=== PATIENT | female | born 1955 | race Caucasian/White ===

== ENCOUNTER 2024-01-13 09:44 | Outpatient (AMB) | payer OTHER, MEDICARE, SELFPAY ==
--- NOTE | 2024-01-13 09:55 | HO.SPINEOV ---
Intake Visit Reasons: spinal stenosis of the lumbar Intake Note: Ms. Bruno is here today c/o severe painful Leg spasms throughout the night. 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 HPI: This 68-year-old female had a L4-S1 fusion done in [facility] approximately 10 years ago. She responded well to the surgery. In the last here she developed severe lower back pain when she stands for prolonged period of time. She describes it as a burning sensation that can go all the way up to her scapula. Moreover, she developed severe spasms the predominantly occur at night anywhere from 3-8 times. Cramps are in the back of her leg and to the outside of her lower leg. There is a happen during the day with less intensity. She denies weakness. She saw Dr. Collins that recommended referral to me for adjacent degenerative disc disease with spinal stenosis. He thought she was not a good candidate for injections. She did try physical therapy without success. s PMH: Tonsillectomy 2 C-sections, cataract surgery L4-S1 fusion, cholecystectomy Medications: MiraLax and amlodipine Allergies: Codeine Social history: . Works for [employer] Physical Exam: Pleasant female. She is able to ambulate normally. She is currently asymptomatic with the exception of lower back pain. There are no neurological deficits for upper or lower extremities. No pathological reflexes. Radiological Studies: MRI done at [facility] on 07/11/2023 shows status post L4-S1 fusion and adjacent development of moderate L3-4 spinal stenosis. Flexion-extension x-rays show minimal retrolisthesis L3-4 but fish mouthing of the disc space. Impression/Plan: This patient has an unusual presentation of adjacent degenerative disc disease. The back pain is related to walking and standing but the cramps can come at any time. However I do think she has symptomatic from the L3-4 level and therefore I offered her an oblique lumbar interbody fusion L3-4 and revision posterior instrumentation L4-S1. I discussed the procedure. She will be in the hospital 1 night. We also discussed the expected postoperative course. Thank you for allowing me to participate in your patients care. 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
== END 2024-01-13 11:55 | disposition home or self-care (01) ==
PROVIDERS: PCP Family Medicine; Referring Provider Physical Medicine & Rehabilitation; Visit Provider Neurological Surgery
DX: M48.061 Spinal stenosis, lumbar region without neurogenic claudication (principal); M51.36 Other intervertebral disc degeneration, lumbar region
CPT/HCPCS: 99204

== ENCOUNTER 2024-01-13 09:44 | Outpatient (REF) | payer OTHER, MEDICARE, SELFPAY ==
--- NOTE | ~2024-01-13 | XR_ITS ---
EXAMINATION: XR LUMBOSACRAL SPINE WITH OBLIQUES CLINICAL INFORMATION: Spinal stenosis lumbar region without neurogenic claudication. COMPARISON: None available. TECHNIQUE: 4 views of the lumbar spine inclusive of flexion and extension views. FINDINGS: Surgical clips right upper quadrant. Levoscoliosis of the lumbar spine. Moderate lumbar spondylosis at L1-L2, L2-L3 and L3-L4. Posterior fixation with bilateral longitudinal rods and pedicular screws spanning L4-L5-S1 levels. Interdisc devices at L4-L5, and at L5-S1. The bones are diffusely demineralized. Hardware appears intact. XR/XR lumbar spine 4V min IMPRESSION: 1. Posterior fixation hardware spanning L4-L5-S1 levels. Hardware appears intact. 2. Moderate lumbar spondylosis at L1-L2, L2-L3 and L3-L4.
== END 2024-01-13 09:45 | disposition home or self-care (01) ==
LOC: HO.HOSX 09:44
PROVIDERS: PCP Family Medicine; Visit Provider Neurological Surgery
DX: M47.816 Spondylosis without myelopathy or radiculopathy, lumbar region (principal); Z98.1 Arthrodesis status
CPT/HCPCS: 72110

== ENCOUNTER 2024-04-25 | Outpatient (REF) | payer MEDICARE, SELFPAY ==
[2024-04-10 10:06] VITALS: BP 136/63; PULSE 64; RESP 20; O2SAT 98; BMI 22.3
--- NOTE | 2024-04-10 10:28 | HO.ANESPROP2 ---
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 fusion procedure (Acute) Past Medical History Medical History Arthritis HTN (hypertension) Back pain Lumbar spinal stenosis Family History Family history of problems with anesthesia: No Surgical History Surgical History Hx of endoscopic retrograde cholangiopancreatography History of esophagogastroduodenoscopy (EGD) H/O colonoscopy Hx of hysterectomy Hx of foot surgery Hx of cholecystectomy Hx of bilateral cataract extraction Hx of section Hx of tonsillectomy History of lumbar fusion History of Problems with Anesthesia: No (Vomit x 1) Social History Social History Housing Other:: mobile home Are you a primary care rep to a significant other at home: No Do you presently have visiting nurse or other home services: No Patient Tobacco Use Status: Never used Tobacco Use of substances other than those prescribed or required for medical reasons: No Have you been hit, kicked, punched, or otherwise hurt by someone within the past year? 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 Verified 04/24/24 09:19 mping codeine Allergy Intermediate Hives/rash Verified 04/24/24 09:19 Home Medications ?Medication ?Instructions ?Recorded ?Confirmed ?Last Taken ?Type amlodipine 5 mg-benazepril 10 mg 1 cap PO QAM 04/09/24 04/24/24 Unknown History capsule polyethylene glycol 3350 17 17 g PO QAM 04/10/24 04/24/24 Unknown History gram/dose oral powder (Miralax) Exam Height,Weight and Vital Signs: Height 5 ft 1 in Weight 53.5 kg Last Vital Signs Pulse 64 04/10/24 10:06 Resp 20 04/10/24 10:06 BP 136/63 04/10/24 10:06 Pulse Ox 98 04/10/24 10:06 O2 Del Method Room Air 04/10/24 10:06 Pertinent Lab Results Pertinent Lab Results: CBC and BMP 03/2024 from outside facility WNL Narrative Narrative: EKG 03/2024 NSR @ 61 Airway Mallampati Class: II TM Dist: >3cm Neck ROM: Limited (OA/R shoulder pain) Loose/Missing/Broken Teeth: No Heart: RRR Lungs: CTAB Assessment and Plan Assessment Anesthesia Assessment: Anesthesia Plan Discussed and PAT Visit Final Anesthetic Review Family History of Problems with Anesthesia: No History of Problems with Anesthesia: No (Vomit x 1) Documented by User: Martha Shafer MD 04/24/24 10:16 PMFSH Past Medical History Medical History Arthritis HTN (hypertension) Back pain Lumbar spinal stenosis Surgical History Surgical History Hx of endoscopic retrograde cholangiopancreatography History of esophagogastroduodenoscopy (EGD) H/O colonoscopy Hx of hysterectomy Hx of foot surgery Hx of cholecystectomy Hx of bilateral cataract extraction Hx of section Hx of tonsillectomy History of lumbar fusion Social History Social History Housing Other:: mobile home Are you a primary care rep to a significant other at home: No Do you presently have visiting nurse or other home services: No Patient Tobacco Use Status: Never used Tobacco Use of substances other than those prescribed or required for medical reasons: No Have you been hit, kicked, punched, or otherwise hurt by someone within the past year? 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 Verified 04/24/24 09:19 mping codeine Allergy Intermediate Hives/rash Verified 04/24/24 09:19 Home Medications ?Medication ?Instructions ?Recorded ?Confirmed ?Last Taken ?Type amlodipine 5 mg-benazepril 10 mg 1 cap PO QAM 04/09/24 04/24/24 Unknown History capsule polyethylene glycol 3350 17 17 g PO QAM 04/10/24 04/24/24 Unknown History gram/dose oral powder (Miralax) Assessment and Plan Final Anesthetic Review NPO: Yes ASA Class: II Final Preanesthetic Review: No Changes in Pt Med Stat, Meds/Allgs Chart Reviewed, Consent Obtained/Reviewed and Anes Risks/Benef Reviewed Patient Risk: Low Procedure Risk: Intermediate Anesthetic Plan Anesthetic Plan: GA Disposition: Standard PACU
[2024-04-24 09:25] VITALS: BP 149/73; PULSE 73; RESP 16; TEMP 37.1; O2SAT 99
--- OUTSIDE RECORDS SUMMARY | 2024-04-24 09:35 | XMS_ITS ---
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 speech fluent with no aphasic errors noted, CN's: fundoscopic completed and crisp optic disk margins seen bilaterally, PERRLA, EOMI, VFF, VA in R eye- in L eye-grossly intact for todays exam without glasses , face symmetrical, tongue midline, palate rises equally, hearing grossly intact B/L, V1-V3 intact to light touch B/L Motor: 5-/5 strength symmetrical in UE and LE bilaterally, tone normal, no cogwheeling or rigidity, no tremors noted Reflexes: 2+ UE and LE symmetrical, toes downgoing bilaterally, no clonus, hoffmans negative Sensation: grossly intact to UE and LE B/L to light touch, cold, and vibration sense bUT DECREASE vibration and cold sense to B/L feet Coordination: finger to nose and heel to nevarez intact B/L without any dysmetria noted Gait: normal steppage, jorge and armswing, toe walking normal, heel walking impaired, tandem impaired, slight wobble with romberg eyes closed. SKIN: normal, no rashes, n o suspicious lesions, warm and dry EXTREMITIES: no clubbing, cyanosi s, or edema PSYCH: Mental status: Pt se en and examined on their own in the outpatient clinic. Dressed appropriately for the weather and situation, grooming intact. Affect was open and receptive, warm, mood described as for sure, depressed . Speech was fluent, without neologisms or flight of ideas noted. Thought process was logical and goal oriented, though content notable for concern about her symptoms , but devoid of thoughts of wanting to harm themselves or others, no delusions, hallucinations or pilo noted. Judgement and insight were intact and appropriate for participation in informed consent and treatment on an outpatient basis. ORAL CAVITY: normal, good dentiti on, mucosa moist, palate normal, tongue in midline
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
--- OUTSIDE RECORDS SUMMARY | 2024-04-24 09:35 | XMS_ITS ---
Author Organization [facility], [facility] Address [address] [address] Care Team Providers Care Rug Receiving Clerk Name Role Phone Dav Messina Primary Care Provider MARINA Andrews Unavailable [phone] REASON FOR VISIT Cb for appt?? Encounters Encounter Location Date Provider Diagnosis [facility], [address] [address] 12/02/2023 MARINA CHAVEZ Plan Of Treatment No Information Progress Notes * Noemi FRANCOB:1955 (68 yo F)Acc No.[id number]:12/02/2023 Patient:?Mima RFANCO :1955???Age:68 Y???Sex:Female Address:[address] [place] [address], [address] * true * Date:? Generated for Printi renate/Aaron/eTransmitting on:?04/24/2024 09:34 AM EDT
--- OUTSIDE RECORDS SUMMARY | 2024-04-24 09:35 | XMS_ITS ---
Author Organization [facility], [facility] Address [address] [address] Care Team Providers Care Brick Baker Name Role Phone Dav Messina Primary Care Provider MARINA Andrews Unavailable [phone] REASON FOR VISIT Cx per pt request, Surgery Encounters Encounter Location Date Provider Diagnosis [facility] [employer] [address] [address] 04/13/2024 MARINA CHAVEZ Plan Of Treatment No Information Progress Notes * Noemi FRANCOB:1955 (68 yo F)Acc No.[id number]:04/13/2024 Progress Notes Patient:?Mima FRANCO Provider:?MARINA CHAVEZ D.O :1955???Age:68 Y???Sex:Female D ate:04/13/2024 Address:[address] [place], [place] [id number] Pcp:Dav Messina Subjective: * Chief Complaints: * ???1. Cx per pt request, Stormy haim. * Medical History:? Objective: * Vitals:? Assessment: Plan: * Treatment: * * Electronic signature of MANUEL CHAVEZ DO on 04/24/2024 at 09:34 AM EDT Sign off status: Pending * Provider:?MARINA CHAVEZ D.O Date:?0 04/13/2024 Generated for Judyi ng/Fakishoreg/eTransmitting on:?04/24/2024 09:34 AM EDT
--- NOTE | 2024-04-24 10:13 | MHC.SHP ---
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 Verified 04/24/24 09:19 mping codeine Allergy Intermediate Hives/rash Verified 04/24/24 09:19 Review of Systems Sugical H&P ROS: Negative: Constitution, Cardiovascular, Respiratory, Neurological, Psychiatric, Hem-Onc, Allergic/Immunologic, Gastrointestinal, Genitourinary, Musculoskeletal, Integumentary, Endocrine and Eyes/Ears/Nose/Throat Exam Surgical H&P Exam: Normal: HEENT, Normal: Heart, Normal: Lungs, Normal: Extremities, Normal: Abdomen, Normal: Skin and Normal: Neurological (Awake, alert) Plan Diagnosis/Plan: Unchanged I have reviewed the history and physical and performed a pertinent physical examination on my patient. No changes have occurred unless specified. oblique lumbar interbody fusion L3-4 and revision posterior instrumentation L4-S1 Time Spent With Patient Time: Total time managing care of this patient today ____ minutes.
--- OUTSIDE RECORDS SUMMARY | 2024-08-03 11:00 | XMS_ITS ---
Author Organization [facility] [employer], [facility] Address [address] [place] [id number] Care Team Providers Care Professor Of Food Biochemistry Name Role Phone Dav Messina Primary Care Provider MARINA Andrews Unavailable [phone] REASON FOR VISIT Cx per pt request, Surgery Encounters Encounter Location Date Provider Diagnosis [facility] [address] [address] 04/13/2024 MARINA CHAVEZ Plan Of Treatment No Information Progress Notes * Noemi FRANCOB:1955 (68 yo F)Acc No.[id number]:04/13/2024 Progress Notes Patient:?Mima FRANCO Provider:?MARINA CHAVEZ D.O :1955???Age:68 Y???Sex:Female D ate:04/13/2024 Address:[address] [place], [place] [id number] Pcp:Dav Messina Subjective: * Chief Complaints: * ???1. Cx per pt request, Stormy haim. * Medical History:? Objective: * Vitals:? Assessment: Plan: * Treatment: * * Electronic signature of MNAUEL CHAVEZ DO on 08/03/2024 at 10:59 AM EST Sign off status: Pending * Provider:?MARINA CHAVEZ D.O Date:?0 04/13/2024 Generated for Judyi ng/Aaron/eTransmitting on:?08/03/2024 10:59 AM EST
--- OUTSIDE RECORDS SUMMARY | 2024-08-03 11:00 | XMS_ITS ---
Author Organization [facility] Address [address] [address] Care Team Providers Care Online Facilitator Name Role Phone Dav Messina Primary Care Provider MARINA Andrews Unavailable [phone] Allergies Allergen (clinical drug ingredient) Drug/Non Drug Allergy documented on EMR Reaction Allergy Type Onset Date Status citalopram Citalopram Unknown Drug Allergy Activ e codeine Codeine Unknown Drug Allergy Active Results Component Value Reference Range Notes PROTEIN, TOTAL AND PROTEIN E LECTROPHORESIS Reviewed date:02/13/2024 02:17:10 PM Interpretation: Performing Lab:NL2, [facility] [facility] [address] Michael Latham Notes/Report: 0; 0; 0; [...] Reviewed date:02/13/2024 02:17:55 PM Interpretation: Performing Lab:NL2, [facility] [facility] [address] Michael Latham Notes/Report: 0; 0; 0; [...] PLT) Reviewed date:02/13/2024 02:17:18 PM Interpretation: Performing Lab:Tobi, [employer] [facility] [address] Michael Latham Notes/Report: 0; 0; 0; [...] A1c Reviewed date:02/13/2024 02:17:51 PM Interpretation: Performing Lab:PARTH, [employer] [facility] [place] [address] Sweta Niroz Notes/Report: 0; 0; 0; 0; 0; 0; [...] change in test platforms from the Dunlap Editor Book to the Yanely lulu c503 may have shifted HbA1c results compared to historical results. Based on laboratory validation testing conducted at [facility], the Yanely platform relative to the Dunlap [...] Reviewed date:02/13/2024 02:17:24 PM Interpretation: Performing Lab:FEDERICO2, [employer] [facility] Sweta Tami Notes/Report: 0; 0; 0; 0; 0; 0; 0; 0; 0 VITAMIN B12 494 650-6627 pg/mL FOLATE, SERUM 9.2 Reference Range Low: <3.4 Borderline: 3.4-5.4 Normal: >5.4 TSH W/REFLEX TO FT4 Reviewed date:02/13/2024 02:17:30 PM Interpretation: Performing Lab:NL2, [employer] [facility] [place] [id number] Sweta Tami Notes/Report: 0; 0; 0; 0; 0; 0; 0; 0; 0 TSH W/REFLEX TO FT4 0.72 0.40-4.50 mIU/L VITAMIN D,25-OH,TOTAL,IA Reviewed date:02/13/2024 02:18:02 PM Interpretation: Performing Lab:FEDERICO2, [employer] [facility] [address] [place], [place] [address] Michael Latham Notes/Report: 0; 0; 0; 0; [...] D, (D2,D3), LC/MS/MS is recommended: order code 63193 (patients >2yrs). See Note 1 Note 1 For additional information, please refer to http://education.Dialogic/faq/LWI162 (This link is being provided for informational/ educational purposes only.) METHYLMALONIC ACID Reviewed date:02/13/2024 02:17:39 PM Interpretation: Performing Lab:DAREN [facility] Aretha/[address] [id number] Jordan Guzman, [id number] Jose Wilburn M.D.,PhD Notes/Report: 0; 0; 0; [...] neural tube defects and intrauterine growth restriction. [employer] utilized Multi-Modal Decomposition (MMD) analysis to establish first and second trimester- specific MMA reference intervals in , as given below: MMA, First trimester (<13 wks gestation): 58-167 nmol/L MMA, Second trimester (13-23 wks gestation): 63-241 nmol/L This test was developed and its analytical performance characteristics have been determined by [employer]. It has not been cleared or approved by the FDA. This assay has been validated pursuant to the CLIA regulations and is used for clinical purposes. VITAMIN B6 Reviewed date:02/13/2024 02:17:46 PM Interpretation: Performing Lab:Cristin MERCEDES/[facility] [id number] Jordan Guzman, [id number] Jose Wilburn M.D.,PhD Notes/Report: 0; 0; 0; 0; 0; 0; 0; 0; 0 VITAMIN B6, PLASMA 9.6 2.1-21.7 ng/mL Vitamin supplementation within 24 hours prior to blood draw may affect the accuracy of the results. This test was developed and its analytical performance characteristics have been determined by [employer] [place], [place]. It has not been cleared or approved by the U.S. Food and Drug Administration. This assay has been validated pursuant to the CLIA regulations and is used for clinical purposes. 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 non smoker, rare ETOH, no illicits. 2 dogs. Raised mandaen, not currently going to gnosticist. Problems Problem Type SNOMED Code ICD Code Onset Dates Problem Status W/U Status Risk Notes Problem Depression (827519222) Depression (F32.9) Active confirmed Problem Hypertension (60651895) HTN (hypertension) (I10) Active confirmed Problem Neuropathic pain (763009375) Neuropathic pain (M79.2) Active confirmed Problem Cramp in limb (329088602) Leg cramping (R25.2) Active confirmed Problem Anxiety (07241006) Anxiety (F41.9) Active confirmed Problem Migraine (62305887) Migraine (G43.909) Active confirmed Problem 766453577 Chronic migraine without aura without status migrainosus, not intractable (G43.709) Active confirmed Problem 20213928 Polyneuropathy (G62.9) Active confirmed Problem 507372 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 Vital Signs Blood pressure systolic 144 mm Hg 02/07/20 24 Blood pressure diastolic 76 mm Hg 024 Heart Rate 69 /min 02/07/2024 Height 62 in 02/07/2024 Weight 118 lbs 02/07/2024 BMI 21.58 kg/m2 02/07/2024 Encounters Encounter Location Date Provider Diagnosis [address] [address] 02/07/2024 MARINA CHAVEZ Chronic migraine without aura without status migrainosus, not intractable G43.709 ; Polyneuropathy G62.9 ; Traumatic brain injury, with loss of consciousness of 30 minutes or less, initial encounter S06.9X1A ; Moderate major depression F32.1 and Lumbar radiculopathy M54.16 Assessments Encounter Date Diagnosis (ICD Code) Assessment Notes Treatment Notes Treatment Clinical Notes Section Notes 02/07/2024 Chronic migraine without aura without [...] switch to duloxetine if sertraline not helpful. Mima is a 68 yo woman with a hx of likely numerous head injuries, most recently in 10/2023, as well as decades of intermittent migraine headache, polyneuropathy in her LE's, and depression in the setting of personal trauma. 02/07/2024 Polyneuropathy (ICD-10 - G62.9) Will get labs to further the workup from [facility] last year Mima is a 68 yo woman with a hx of likely numerous head injuries, most recently in 10/2023, as well as decades of intermittent migraine headache, polyneuropathy in her LE's, and depression in the setting of personal trauma. 02/07/2024 Traumatic brain injury, with loss of consciousness of 30 minutes or less, initial encounter (ICD-10 - S06.9X1A) Hx of concussions in the past, and most recently concussion wiht LOC- stil likely healing, and will advise supportive care including improving sleep hygiene, computer eye rest, and stress management at home. Mima is a 68 yo woman with a hx of likely numerous head injuries, most recently in 10/2023, as well as decades of intermittent migraine headache, polyneuropathy in her LE's, and depression in the setting of personal trauma. 02/07/2024 Moderate major depression (ICD-10 - F32.1) Agree with sertraline and likely will need higher doses to see full effect- will begin with workup and then discuss this medication in more detail. Mima is a 68 yo woman with a hx of likely numerous head injuries, most recently in 10/2023, as well as decades of intermittent migraine headache, polyneuropathy in her LE's, and depression in the setting of personal trauma. 02/07/2024 Lumbar radiculopathy (ICD-10 - M54.16) pending further surgery from Kamron Muller in the the fall 2023 Mima is a 68 yo woman with a hx of likely numerous head injuries, most recently in 10/2023, as well as decades of intermittent migraine headache, polyneuropathy in her LE's, and depression in the setting of personal trauma. 02/07/2024 Other Neuro I spent a total of 60 minutes on the present encounter, which includes preparing for the encounter, obtaining history, performing examination, reviewing diagnostic data, ordering medications/test ing/procedures and other care coordination, referring to and communicating with other health rn complex care, documenting clinical information in the record, [...] sentence. If any questions, please contact the COMMERCIAL LINES UNDERWRITER office at [phone]. Mima is a 68 yo woman with a hx of likely numerous head injuries, most recently in 10/2023, as well as decades of intermittent migraine headache, polyneuropathy in her LE's, and depression in the setting of personal trauma. Plan Of Treatment Treatment Notes Assessment Notes [...] Notes * Melanie FRANCOaDOB:1955 (68 yo F)Acc No.[id number]:02/07/2024 Progress Notes Patient:?Mima FRANCO Provider:?MARINA CHAVEZ D.O :1955???Age:68 Y???Sex:Female D ate:02/07/2024 Address:[address] [place], [place] [id number] Pcp:Dav Messina Subjective: * Chief Complaints: * [...] pain are severe and she is working [facility] neurosurg on this. Saw Dr. Muller for neurosurg and is pending back surgery in April 2024. Herrera s leg spasms at [facility] that disrupt her sleep nightly.? 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 a son and a daughter is and she cares for their kids (grandkids are 10 and 12). 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 non smoker, rare ETOH, no illicits. 2 dogs. Raised mandaen, not currently going to gnosticist. 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 If any questions, please contact the COMMERCIAL LINES UNDERWRITER office at [phone]. ?? * Procedure Codes:? * Follow Up:?blood today, fu n ext avail F2F * * Sign off status: Completed true * Provider:?MARINA CHAVEZ D.O Date:?0 02/07/2024 Generated for Sofia dewitt/Aaron/Brianitting on:?08/03/2024 10:59 AM EST History and Physical Notes * HPI (History of Present Illness) Category Sub-Category Detail Notes Category Not es Interim History * Prior Medication trials i nclude- as above Examination Category Sub-Category Detail Notes Category Not es General Examination GENERAL APPEARANCE: in no ac marcel distress, well developed, well nourished HEAD: normocephalic, atrau matic EARS: normal NOSE: nares patent, no les ions THROAT: normal, no erythema, no exudate, tonsils normal, uvula midline NECK/THYROID: normal, neck supple, full range of motion HEART: LUNGS: NEUROLOGIC: Cognition: alert, oriented to person, place, time and situation, 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
--- OUTSIDE RECORDS SUMMARY | 2024-08-03 11:00 | XMS_ITS | Patient Health Record ---
Author Organization [facility] Address [address] [address] Care Team Providers Care Sales Management Intern Name Role Phone Dav eMssina Primary Care Provider MARINA Andrews Unavailable [phone] Allergies Allergen (clinical drug ingredient) Drug/Non Drug Allergy documented on EMR Reaction Allergy Type Onset Date Status citalopram Citalopram Unknown Drug Allergy Activ e codeine Codeine Unknown Drug Allergy Active Results Component Value Reference Range Notes PROTEIN, TOTAL AND PROTEIN E LECTROPHORESIS Reviewed date:02/13/2024 02:17:10 PM Interpretation: Performing Lab:NL2, [facility] [employer] [facility] Michael Latham Notes/Report: 0; 0; 0; [...] Reviewed date:02/13/2024 02:17:55 PM Interpretation: Performing Lab:NL2, [employer] [facility] Michael Latham Notes/Report: 0; 0; 0; [...] Reviewed date:02/13/2024 02:17:18 PM Interpretation: Performing Lab:PARTH, [employer] [facility] Michael Latham Notes/Report: 0; 0; 0; [...] Reviewed date:02/13/2024 02:17:51 PM Interpretation: Performing Lab:PARTH [employer] [facility] Michael Latham Notes/Report: 0; 0; 0; [...] change in test platforms from the Dunlap Entry Level Lab Technician to the Yanely lulu c503 may have shifted HbA1c results compared to historical results. Based on laboratory validation testing conducted at [facility], the Yanely platform relative to the Dunlap [...] Reviewed date:02/13/2024 02:17:24 PM Interpretation: Performing Lab:FEDERICO2, [employer] [facility] Marky Sweta Latham Notes/Report: 0; 0; 0; 0; 0; 0; 0; 0; 0 VITAMIN B12 363 142-0218 pg/mL FOLATE, SERUM 9.2 Reference Range Low: <3.4 Borderline: 3.4-5.4 Normal: >5.4 TSH W/REFLEX TO FT4 Reviewed date:02/13/2024 02:17:30 PM Interpretation: Performing Lab:NL2, [facility] [employer] [facility] Michael Latham Notes/Report: 0; 0; 0; 0; 0; 0; 0; 0; 0 TSH W/REFLEX TO FT4 0.72 0.40-4.50 mIU/L VITAMIN D,25-OH,TOTAL,IA Reviewed date:02/13/2024 02:18:02 PM Interpretation: Performing Lab:FEDERICO2, [facility] [address]mem[address] Michael Latham Notes/Report: 0; 0; 0; [...] D, (D2,D3), LC/MS/MS is recommended: order code [id number] (patients >2yrs). See Note 1 Note 1 For additional information, please refer to http://education.Lateral SV/faq/QXT855 (This link is being provided for informational/ educational purposes only.) METHYLMALONIC ACID Reviewed date:02/13/2024 02:17:39 PM Interpretation: Performing Lab:DAREN [facility]/[id number] Jordan Guzman, [id number] Jose Wilburn M.D.,PhD Notes/Report: 0; 0; 0; [...] neural tube defects and intrauterine growth restriction. [employer] utilized Multi-Modal Decomposition (MMD) analysis to establish first and second trimester- specific MMA reference intervals in , as given below: MMA, First trimester (<13 wks gestation): 58-167 nmol/L MMA, Second trimester (13-23 wks gestation): 63-241 nmol/L This test was developed and its analytical performance characteristics have been determined by [employer]. It has not been cleared or approved by the FDA. This assay has been validated pursuant to the CLIA regulations and is used for clinical purposes. VITAMIN B6 Reviewed date:02/13/2024 02:17:46 PM Interpretation: Performing Lab:DAREN [facility] Aretha/[facility] [id number] Jordan Guzman, [id number] Jose Wilburn M.D.,PhD Notes/Report: 0; 0; 0; 0; 0; 0; 0; 0; 0 VITAMIN B6, PLASMA 9.6 2.1-21.7 ng/mL Vitamin supplementation within 24 hours prior to blood draw may affect the accuracy of the results. This test was developed and its analytical performance characteristics have been determined by [employer] [place], [place]. It has not been cleared or approved by the U.S. Food and Drug Administration. This assay has been validated pursuant to the CLIA regulations and is used for clinical purposes. 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 non smoker, rare ETOH, no illicits. 2 dogs. Raised faith, not currently going to pentecostal. Problems Problem Type SNOMED Code ICD Code Onset Dates Problem Status W/U Status Risk Notes Problem Anxiety (91503497) Anxiety (F41.9) Active confirmed Problem Migraine (94087257) Migraine (G43.909) Active confirmed Problem Depression (880006622) Depression (F32.9) Active confirmed Problem 63083276 Polyneuropathy (G62.9) Active confirmed Problem Neuropathic pain (493060453) Neuropathic pain (M79.2) Active confirmed Problem 208198240 Chronic migraine without aura without status migrainosus, not intractable (G43.709) Active confirmed Problem Hypertension (79354719) HTN (hypertension) (I10) Active confirmed Problem Cramp in limb (239048939) Leg cramping (R25.2) Active confirmed Problem 606947 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 Vital Signs Heart Rate 69 /min 02/07/2024 Blood pressure diastolic 76 mm Hg 02/07/2024 Height 62 in 02/07/2024 Blood pressure systolic 144 mm Hg 02/07/2024 Weight 118 lbs 02/07/2024 BMI 21.58 kg/m2 02/07/2024 Encounters Encounter Location Date Provider Diagnosis [address] [address] 02/07/2024 MARINA CHAVEZ Chronic migraine without aura without status migrainosus, not intractable G43.709 ; Polyneuropathy G62.9 ; Traumatic brain injury, with loss of consciousness of 30 minutes or less, initial encounter S06.9X1A ; Moderate major depression F32.1 and Lumbar radiculopathy M54.[address] [address] 11/28/[address] [address] 12/02/[address] [address] 12/02/2023 MARINA CHAVEZ Assessments Encounter Date Diagnosis (ICD Code) Assessment Notes Treatment Notes Treatment Clinical Notes Section Notes 02/07/2024 Polyneuropathy (ICD-10 - G62.9) Will get labs to further the workup from [facility] last year Mima is a 68 yo woman with a hx of likely numerous head injuries, most recently in 10/2023, as well as decades of intermittent migraine headache, polyneuropathy in her LE's, and depression in the setting of personal trauma. 02/07/2024 Chronic migraine without aura without status [...] referring to and communicating with other health progressive care manager, documenting clinical information in the record, counseling, providing instructions and answering the patient's questions. The patient understands and agrees with the plan of care outlined. This note was generated with voice recognition software. Please excuse any errors which may have been overlooked during review. Sometimes these errors may affect the content or meaning of a given sentence. If any questions, please contact the TECHNICAL TRANSLATOR office at [phone]. Mima is a 68 yo woman with a hx of likely numerous head injuries, most recently in 10/2023, as well as decades of intermittent migraine headache, polyneuropathy in her LE's, and depression in the setting of personal trauma. Plan Of Treatment No Information Insurance Providers Payer Name Payer Address Payer Phone Subscriber Number Group Number Insured Name Patient Relationship to Insured Coverage Start Date Coverage End Date [facility] [address] [place] [address] [phone] [id number] Mima Bruno Self - patient is the insured MEDICARE [address] [place] [id number] PART A ONLY Mima Bruno Self - patient is the insured Medical (General) History Medical History History ICD Code Syncope and collapse R55 Depression F32.9 HTN (hypertension) I10 Neuropathic pain M79.2 Leg cramping R25.2 Anxiety F41.9 Migraine G43.909 Surgical History Surgery Date(Month/Year) Back surgery x2 Gallbladder Right foot sugery Hysterectomy x2 Tonsillectomy
--- OUTSIDE RECORDS SUMMARY | 2024-08-03 11:00 | XMS_ITS ---
Author Organization [facility] Address [address] [address] Care Team Providers Care Senior Analyst Developer Name Role Phone Dav Messina Primary Care Provider MARINA Andrews Unavailable [phone] REASON FOR VISIT Cb for appt?? Encounters Encounter Location Date Provider Diagnosis [facility], [address] [address] 12/02/2023 MARINA CHAVEZ Plan Of Treatment No Information Progress Notes * Noemi FRANCOB:1955 (68 yo F)Acc No.[id number]:12/02/2023 Patient:?Mima FRANCO :1955???Age:68 Y???Sex:Female Address:[address] [place] [address], [address] * true * Date:? Generated for Judyi renate/Aaron/eTransmitting on:?08/03/2024 11:00 AM EST
== END 2024-04-25 00:01 ==
LOC: HO.PAT
PROVIDERS: PCP Family Medicine; Visit Provider Neurological Surgery
DX: Z01.812 Encounter for preprocedural laboratory examination (principal); M48.061 Spinal stenosis, lumbar region without neurogenic claudication
CPT/HCPCS: 86850; 86900; 86901

== ENCOUNTER 2024-05-01 06:04 | Inpatient (IN) | payer OTHER, MEDICARE, SELFPAY ==
[2024-05-01] VITALS (14 sets, daily range): BP systolic 94–138; BP diastolic 38–65; PULSE 60–94; RESP 14–22; TEMP 36.2–36.8; O2SAT 98–100; BMI 22.1; BMI 22.0
--- NOTE | ~2024-05-01 | FL_ITS ---
EXAMINATION: Intraoperative fluoroscopy CLINICAL INFORMATION: L3-4 OLIF revision COMPARISON: Lumbar spine x-rays January 13, 2024 TECHNIQUE: Intraoperative fluoroscopy was provided for use by Dr. Muller. A total of 4 images were saved to PACS. A radiologist was not present during imaging. Today's dictation is only for administrative purposes to document intraoperative fluoroscopic usage. TOTAL FLUOROSCOPIC TIME: 58 seconds DAP: 5.1 Gy-cm FINDINGS\ FL/FL guidance in OR IMPRESSION: Intraoperative fluoroscopy provided for use by Dr. Muller. Please see operative note for detailed findings. Electronically signed by: Jose Pereira MD 05/01/2024 11:42 AM EDT
--- OUTSIDE RECORDS SUMMARY | 2024-05-01 06:11 | XMS_ITS ---
Author Organization [facility], [facility] Address [address] [address] Care Team Providers Care Application Designer Name Role Phone Dav Messina Primary Care Provider MARINA Andrews Unavailable [phone] REASON FOR VISIT Cb for appt?? Encounters Encounter Location Date Provider Diagnosis [facility], [address] [address] 12/02/2023 MARINA CHAVEZ Plan Of Treatment No Information Progress Notes * Noemi FRANCOB:1955 (68 yo F)Acc No.[id number]:12/02/2023 Patient:?Mima FRANCO :1955???Age:68 Y???Sex:Female Address:[address] [place] [address], [address] * true * Date:? Generated for Printi renate/Aaron/eTransmitting on:?05/01/2024 06:11 AM EDT
--- OUTSIDE RECORDS SUMMARY | 2024-05-01 06:11 | XMS_ITS ---
Author Organization [facility], [facility] Address [address] [place] [address] Care Team Providers Care Director Of Student Aid Name Role Phone Dav Msesina Primary Care Provider MARINA Andrews Unavailable [phone] REASON FOR VISIT Cx per pt request, Surgery Encounters Encounter Location Date Provider Diagnosis [facility] [employer] [address] [address] 04/13/2024 MARINA CHAVEZ Plan Of Treatment No Information Progress Notes * Noemi FRANCOB:1955 (68 yo F)Acc No.[id number]:04/13/2024 Progress Notes Patient:?Mima FRANCO Provider:?MARINA CHAVEZ D.O :1955???Age:68 Y???Sex:Female D ate:04/13/2024 Address:[address] [place], [place] [id number] Pcp:Dav Messina Subjective: * Chief Complaints: * ???1. Cx per pt request, Stormy haim. * Medical History:? Objective: * Vitals:? Assessment: Plan: * Treatment: * * Electronic signature of MANUEL CHAVEZ DO on 05/01/2024 at 06:11 AM EDT Sign off status: Pending * Provider:?MARINA CHAVEZ D.O Date:?0 04/13/2024 Generated for Sofia ng/Fakishoreg/eTransmitting on:?05/01/2024 06:11 AM EDT
--- OUTSIDE RECORDS SUMMARY | 2024-05-01 06:11 | XMS_ITS ---
Author Organization [facility] Address [address] [address] Care Team Providers Care Soakers Supervisor Name Role Phone Dav Messina Primary Care Provider MARINA Andrews Unavailable [phone] Allergies Allergen (clinical drug ingredient) Drug/Non Drug Allergy documented on EMR Reaction Allergy Type Onset Date Status citalopram Citalopram Unknown Drug Allergy Activ e codeine Codeine Unknown Drug Allergy Active Results Component Value Reference Range Notes VITAMIN B6 Reviewed date:02/13/2024 02:17:46 PM Interpretation: Performing Lab:DAREN [facility] Aretha/[facility] [address] [id number] Jordan Guzman, [id number] Jose Wilburn M.D.,PhD Notes/Report: 0; 0; 0; 0; 0; 0; 0; 0; 0 VITAMIN B6, PLASMA 9.6 2.1-21.7 ng/mL Vitamin supplementation within 24 hours prior to blood draw may affect the accuracy of the results. This test was developed and its analytical performance characteristics have been determined by [facility] [place] It has not been cleared or approved by the U.S. Food and Drug Administration. This assay has been validated pursuant to the CLIA regulations and is used for clinical purposes. METHYLMALONIC ACID Reviewed date:02/13/2024 02:17:39 PM Interpretation: Performing Lab:DAREN [facility] [id number] Jordan Guzman, [id number] Jose Wilburn M.D.,PhD Notes/Report: 0; 0; 0; [...] neural tube defects and intrauterine growth restriction. [facility] utilized Multi-Modal Decomposition (MMD) analysis to establish first and second trimester- specific MMA reference intervals in , as given below: MMA, First trimester (<13 wks gestation): 58-167 nmol/L MMA, Second trimester (13-23 wks gestation): 63-241 nmol/L This test was developed and its analytical performance characteristics have been determined by [facility]. It has not been cleared or approved by the FDA. This assay has been validated pursuant to the CLIA regulations and is used for clinical purposes. VITAMIN D,25-OH,TOTAL,IA Reviewed date:02/13/2024 02:18:02 PM Interpretation: Performing Lab:PARTH, [facility] [place], [place] [address] Michael Latham Notes/Report: 0; 0; 0; 0; [...] D, (D2,D3), LC/MS/MS is recommended: order code 15873 (patients >2yrs). See Note 1 Note 1 For additional information, please refer to http://education.[employer]SourceDogg.com/faq/TXT732 (This link is being provided for informational/ educational purposes only.) TSH W/REFLEX TO FT4 Reviewed date:02/13/2024 02:17:30 PM Interpretation: Performing Lab:PARTH, [facility] [place] [id number] [place] [address] [facility] Notes/Report: 0; 0; 0; 0; 0; 0; 0; 0; 0 TSH W/REFLEX TO FT4 0.72 0.40-4.50 mIU/L VITAMIN B12/FOLATE, SERUM PA LOULOU Reviewed date:02/13/2024 02:17:24 PM Interpretation: Performing Lab:[facility], OFERT[facility]DIA [address] [facility] Notes/Report: 0; 0; 0; 0; 0; 0; 0; 0; 0 VITAMIN B12 795 244-6520 pg/mL FOLATE, SERUM 9.2 Reference Range Low: <3.4 Borderline: 3.4-5.4 Normal: >5.4 HEMOGLOBIN A1c Reviewed date:02/13/2024 02:17:51 PM Interpretation: Performing Lab:[facility], OFERT[facility]DIA [address] [facility] Notes/Report: 0; 0; 0; 0; 0; [...] change in test platforms from the Dunlap Shingle Inspector to the Yanely lulu c503 may have shifted HbA1c results compared to historical results. Based on laboratory validation testing conducted at [facility], the Yanely platform relative to the Dunlap [...] Reviewed date:02/13/2024 02:17:18 PM Interpretation: Performing Lab:FEDERICO2, [facility] Michael Latham Notes/Report: 0; 0; 0; [...] Reviewed date:02/13/2024 02:17:55 PM Interpretation: Performing Lab:PARTH, [facility] Michael Latham Notes/Report: 0; 0; 0; [...] Reviewed date:02/13/2024 02:17:10 PM Interpretation: Performing Lab:NL2, [facility] [id number] [facility] Michael Latham Notes/Report: 0; 0; 0; 0; 0; 0; 0; 0; 0 PROTEIN, TOTAL 7.4 6.1-8.1 g/dL ALBUMIN 4.6 3.8-4.8 g/dL ALPHA 1 GLOBULIN 0.3 0.2-0.3 g/dL ALPHA 2 GLOBULIN 0.7 0.5-0.9 g/dL BETA 1 GLOBULIN 0.4 0.4-0.6 g/dL BETA 2 GLOBULIN 0.4 0.2-0.5 g/dL GAMMA GLOBULIN 1.0 0.8-1.7 g/dL INTERPRETATION Normal Serum Protein Electrophoresis Pattern. No abnormal protein bands (M-protein) detected. REASON FOR VISIT New Pt: Ok to [...] Status W/U Status Risk Notes Problem Depression (884838126) Depression (F32.9) Active confirmed Problem Hypertension (24587753) HTN (hypertension) (I10) Active confirmed Problem Neuropathic pain (707723834) Neuropathic pain (M79.2) Active confirmed Problem Cramp in limb (511762584) Leg cramping (R25.2) Active confirmed Problem Anxiety (82062963) Anxiety (F41.9) Active confirmed Problem Migraine (54843377) Migraine (G43.909) Active confirmed Problem 806959824 Chronic migraine without aura without status migrainosus, not intractable (G43.709) Active confirmed Problem 05813786 Polyneuropathy (G62.9) Active confirmed Problem 557409 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 The patient understands and agrees with the plan of care outlined. This note was generated with voice recognition software. Please excuse any errors which may have been overlooked during review. Sometimes these errors may affect the content or meaning of a given sentence. If any questions, please contact the [facility] office at [phone]. Plan Of Treatment Treatment Notes Assessment Notes Chronic migraine without aur a without status migrainosus, not intractable Magnesium glycinate 400mg once to twice daily for headaches and leg cramps riboflavin (B2) 400mg once to twice daily for headaches tonic water (quinine) before bed 4-6oz for restless legs Next Appt Details Follow Up: blood today, fu n ext avail F2F, Reason: Progress Notes * Noemi FRANCOB:1955 (68 yo F)Acc No.[id number]:02/07/2024 Progress Notes Patient:?Mima FRANCO Provider:?MARINA CHAVEZ D.O :1955???Age:68 Y???Sex:Female D ate:02/07/2024 Address:[address] [place], [place] [id number] Pcp:Dav Messina Subjective: * Chief Complaints: * [...] pain are severe and she is working [facility] neurosurg on this. Saw Dr. Muller for neurosurg and is pending back surgery in April 2024. Herrera s leg spasms at [facility] that disrupt her sleep nightly.? 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 a son and a daughter is and she cares for their kids (grandkids are 10 and 12). Works for [employer] 50 hrs per week from home. 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 non smoker, rare ETOH, no illicits. 2 dogs. Raised amish, not currently going to [employer]. * Medications:?TakingPolyethyl ken Glycol 3350 Liquid as [...] and situation, gives appropriate short term and [facility] personal history, speech fluent with no aphasic [...] referring to and communicating with other health nurse wound care, documenting clinical information in the record, counseling, providing instructions and answering the patient's questions. The patient understands and agrees with the plan of care outlined. This note was generated with voice recognition software. Please excuse any errors which may have been overlooked during review. Sometimes these errors may affect the content or meaning of a given sentence. If any questions, please contact the [facility] office at [phone]. ?? * Procedure Codes:? * Follow Up:?blood today, fu n ext avail F2F * * Sign off status: Completed true * Provider:?MARINA CHAVEZ D.O Date:?0 02/07/2024 Generated for Judydaren dewitt/Aaron/eTransmitting on:?05/01/2024 06:11 AM EDT History and Physical Notes * HPI (History of Present Illness) Category Sub-Category Detail Notes Interim History * Prior Medication trials include- as above Examination Category Sub-Category Detail Notes General Examination GENERAL APPEARANCE: in no ac deering distress, well developed, well nourished HEAD: normocephalic, atrau matic EARS: normal NOSE: nares patent, no les ions THROAT: normal, no erythema, no exudate, tonsils normal, uvula midline NECK/THYROID: normal, neck supple, full range of motion HEART: LUNGS: NEUROLOGIC: Cognition: alert, oriented to person, place, time and situation, gives appropriate short term and tank terminal gauger personal history, speech fluent with no aphasic [...]
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
[2024-05-01] MEDS: Lactated Ringers 1,000 ML 100 ML IVCONT (06:28)
[2024-05-01] MEDS: methocarbamoL 750 MG TABLET PO (07:07)
[2024-05-01] MEDS: Gabapentin 300 MG CAPSULE PO (07:08)
--- NOTE | 2024-05-01 07:15 | P.CONAN_ITS ---
Documented by User: Mellissa Wallis NP 04/30/24 09:12 HPI - Anesthesia Eval Consult details Narrative: 68yo F for L3-4 Oblique Lumbar Interbody Fusion and REVISION of Posterior Instrumentation at L3-S1 Previously rescheduled from 03/2024 d/t insurance issue. From 03/2024 PAT: Optimized per PCP No recent illness No CP/SOB with walking ~ 30 min PMFSH Active Problems Active Problems: All Active Problems Lumbar spinal stenosis due to adjacent segment disease after fusion procedure (Acute) Past Medical History Medical History Arthritis HTN (hypertension) Back pain Lumbar spinal stenosis Family History Family history of problems with anesthesia: No Surgical History Surgical History Hx of endoscopic retrograde cholangiopancreatography History of esophagogastroduodenoscopy (EGD) H/O colonoscopy Hx of hysterectomy Hx of foot surgery Hx of cholecystectomy Hx of bilateral cataract extraction Hx of section Hx of tonsillectomy History of lumbar fusion History of Problems with Anesthesia: No (Vomit x 1) Social History Social History Housing Other:: Rv home Are you a primary animal care technician to a significant other at home: No Do you presently have visiting nurse or other home services: No Patient Tobacco Use Status: Never used Tobacco Have you been hit, kicked, punched, or otherwise hurt by someone within the past year? 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 Verified 05/01/24 06:18 mping codeine Allergy Intermediate Hives/rash Verified 05/01/24 06:18 Home Medications ?Medication ?Instructions ?Recorded ?Confirmed ?Last Taken ?Type amlodipine 5 mg-benazepril 10 mg 1 cap PO DAILY 04/09/24 05/01/24 04/30/24 History capsule polyethylene glycol 3350 17 17 g PO DAILY 04/10/24 05/01/24 04/30/24 History gram/dose oral powder (Miralax) omeprazole 20 mg capsule,delayed 20 mg PO DAILY 04/25/24 05/01/24 04/30/24 History release Exam Pertinent Lab Results Pertinent Lab Results: CBC and BMP 03/2024 from outside facility WNL Narrative Narrative: EKG 03/2024 NSR @ 61 Airway Mallampati Class: II TM Dist: >3cm Neck ROM: Limited (OA/R shoulder pain) Loose/Missing/Broken Teeth: No Heart: RRR Lungs: CTAB Assessment and Plan Assessment Anesthesia Assessment: Anesthesia Plan Discussed and PAT Visit Final Anesthetic Review Family History of Problems with Anesthesia: No History of Problems with Anesthesia: No (Vomit x 1) Documented by User: Kacy Odell DO 05/01/24 07:22 HPI - Anesthesia Eval Consult details Narrative: 68yo F for L3-4 Oblique Lumbar Interbody Fusion and REVISION of Posterior Instrumentation at L3-S1 Previously rescheduled from 03/2024 d/t insurance issue. From 03/2024 PAT:optimized per PCP No recent illness No CP/SOB with walking ~ 30 min PMFSH Past Medical History Medical History Arthritis HTN (hypertension) Back pain Lumbar spinal stenosis Family History Family history of problems with anesthesia: No Surgical History Surgical History Hx of endoscopic retrograde cholangiopancreatography History of esophagogastroduodenoscopy (EGD) H/O colonoscopy Hx of hysterectomy Hx of foot surgery Hx of cholecystectomy Hx of bilateral cataract extraction Hx of section Hx of tonsillectomy History of lumbar fusion History of Problems with Anesthesia: No Social History Social History Housing Other:: Rv home Are you a primary animal care technician to a significant other at home: No Do you presently have visiting nurse or other home services: No Patient Tobacco Use Status: Never used Tobacco Have you been hit, kicked, punched, or otherwise hurt by someone within the past year? 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 Verified 05/01/24 06:18 mping codeine Allergy Intermediate Hives/rash Verified 05/01/24 06:18 Home Medications ?Medication ?Instructions ?Recorded ?Confirmed ?Last Taken ?Type amlodipine 5 mg-benazepril 10 mg 1 cap PO DAILY 04/09/24 05/01/24 04/30/24 History capsule polyethylene glycol 3350 17 17 g PO DAILY 04/10/24 05/01/24 04/30/24 History gram/dose oral powder (Miralax) omeprazole 20 mg capsule,delayed 20 mg PO DAILY 04/25/24 05/01/24 04/30/24 History release Exam Exam Date and Time: 05/01/24 0715 Height,Weight and Vital Signs: Height 5 ft 1 in Weight 52.98 kg Vital Signs Temperature 98.3 F 05/01/24 06:24 Pulse Rate 73 05/01/24 06:24 Respiratory Rate 18 05/01/24 06:24 Blood Pressure 138/65 05/01/24 06:24 Pulse Oximetry 99 05/01/24 06:24 Oxygen Delivery Method Room Air 05/01/24 06:24 Temperature 98.3 F 05/01/24 06:24 Pulse Rate 73 05/01/24 06:24 Respiratory Rate 18 05/01/24 06:24 Blood Pressure 138/65 05/01/24 06:24 Pulse Oximetry 99 05/01/24 06:24 Oxygen Delivery Method Room Air 05/01/24 06:24 Airway Mallampati Class: I TM Dist: >3cm Neck ROM: Limited (OA/R shoulder pain) Loose/Missing/Broken Teeth: No (patient denies any loose or broken teeth) Heart: S1S2 Assessment and Plan Assessment Anesthesia Assessment: Anesthesia Plan Discussed and Chart Reviewed Final Anesthetic Review Family History of Problems with Anesthesia: No History of Problems with Anesthesia: No NPO: Yes ASA Class: II Final Preanesthetic Review: No Changes in Pt Med Stat, Meds/Allgs Chart Reviewed, Consent Obtained/Reviewed and Anes Risks/Benef Reviewed Patient Risk: Low Procedure Risk: Intermediate Anesthetic Plan Anesthetic Plan: GA and Agree w/ Assess. and Plan Disposition: Standard PACU
--- NOTE | 2024-05-01 07:26 | P.HPSUR_ITS ---
Pre-Procedural Eval Section A - 24 Hr Update-Section A only Date of Service: 05/01/24 The patient is an INPATIENT: No Changes since office visit: No Cold of Flu in the past 2 weeks, No New Medical Problems, No Changes in Medication and No Patient answered all questions The patient has been examined within 24 hours of the surgical procedure. 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 Verified 05/01/24 06:18 mping codeine Allergy Intermediate Hives/rash Verified 05/01/24 06:18 Review of Systems Sugical H&P ROS: Negative: Constitution, Cardiovascular, Respiratory, Neurological, Psychiatric, Hem-Onc, Allergic/Immunologic, Gastrointestinal, Genitourinary, Musculoskeletal, Integumentary, Endocrine and Eyes/Ears/Nose/Throat Exam Surgical H&P Exam: Normal: HEENT, Normal: Heart, Normal: Lungs, Normal: Extremities, Normal: Abdomen, Normal: Skin and Normal: Neurological (awake, alert,oriented x 3 ) Plan Diagnosis/Plan: Unchanged L3-4 Oblique lumbar interbody fusion with revision of posterior instrumentation Time Spent With Patient Time: Total time managing care of this patient today _7___ minutes.
--- NOTE | 2024-05-01 09:56 | P.OP_ITS ---
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 I have explained the nature, purpose and benefits of the operation. I have discussed the risks and benefit of the operation including possible complications or adverse events with patient/family. Alternative(s) were discussed with the patient with their relative benefits and risks as well as the consequences of not accepting the operation were included in obtaining consent. Surgeon: AMRIT GARDNER MD, PHD Procedure Assisted By: maureen Valdez Description of Procedure This patient presented with back pain and symptoms of neurogenic claudication. She had an L4-S1 fusion done not institution and imaging reviews adjacent degenerative disc disease. The patient was offered an oblique lumbar interbody fusion L3-4 followed by revision of the L4-S1 instrumentation with removal of the L5 and S1 pedicle screws, insertion of pedicle screws in L3 that will be connected to the previous placed L4 screws. The procedure complications were explained. The patient was consented. The patient was brought to the operating room and endotracheally intubated. The patient was turned in a lateral position with the left side up. Prep and drape was done followed by timeout. A small incision was made in the left lower abdominal quadrant. The muscle fascia was opened after which the 3 muscle layer was split to enter the retroperitoneal space. Dilators were docked in the anterior one third of the L3-4 disc space followed by a retractor. The retractor was opened. The L3-4 disc space was exposed. An annulotomy was done after which an elevator Swanson was used to release the disc material from its endplates and to perforate the contralateral side. A partial discectomy was done. An 8 and 10 mm height trial implant was inserted. The discectomy was completed. The endplates were prepared. An 10 x 45 mm with 0 degree lordosis 4 web cage filled with allograft was inserted into the disc space under fluoroscopic guidance.The retractor was removed. Hemostasis was done. The incision was closed in 2 layers. Steri-Strips used to approximate incision. An OpSite with Tegaderm was used to cover the incision. This marked first part of the procedure. The patient was turned prone on the [place] spine table. 2C arms were installed for fluoroscopy. Prep and drape was done followed by a second timeout. The previous midline incision was opened and the cortical screws from L4-S1 were exposed. Locking caps and rods were removed bilaterally. The L5 and S1 screws were removed. The L4 screws were left in situ. The following steps were taken. A pediguard tap was used to create a transpedicular trajectory into the vertebral body. A K wire was placed. A specially designed instrument was advanced over the K wire to decorticate the posterolateral gutter in preparation for the posterolateral fusion. A pedicle screw was advanced over the K wire and the K wire was removed. The steps were done for the bilateral L3 pedicles. A total of 2 screws were placed with a diameter of 6.5 x 40 mm. The L3 screws were connected to the previous placed L4 screws with a 35 mm juan miguel bilaterally and locked down with locking caps. The extension towers were removed. The posterolateral gutter was filled with allograft to complete the posterolateral L3-4 fusion Hemostasis was done and the incision was closed in 2 layers. Steri- Strips were used to approximate the incision. An OpSite were taken and was used to cover the incision. All sponge and needle counts were correct. Patient was extubated and transferred in stable is to recovery room. Anesthesia: General Estimated Blood Loss (ml): 30 mL Duration of Surgery: 2 hours Complications: None Postoperative Plan: Admit to inpatient for observation
[2024-05-01] MEDS: HYDROmorphone HCl 0.5 MG/0.5 ML SYRINGE IVPUSH (10:35)
[2024-05-01] MEDS: 0.9 % Sodium Chloride 1,000 ML 75 ML IVCONT (11:26)
--- NOTE | 2024-05-01 13:20 | PC.NURSE ---
Pt is turning off bed alarm to walk to bathroom, pt scores as a high fall risk and is unsteady. Education provided to pt regarding safety. Red socks in place, star in place, bed alarm turned back on.
[2024-05-01] MEDS: HYDROmorphone HCl 1 MG/ML SYRINGE IVPUSH (13:53)
[2024-05-01] MEDS: Acetaminophen 1,000 MG/100 ML PIGGYBACK 400 MG IV ×2 (13:54→20:04)
--- NOTE | 2024-05-01 14:11 | PHA.MEDREC ---
Addendum entered by Irish Carrera RPh 05/01/24 14:22: reviewed by [facility]. Original Note: Pharmacy Consult ? Medication Reconciliation Pharmacy has reviewed the medication reconciliation nursing. Spoke to patient to confirm med list. patient states she is not taking Famotidine 20 mg and Sertraline 50 mg. patient last took her medications yesterday.
[2024-05-01] MEDS: ceFAZolin Sodium/Dextrose,Iso 2 GM/50 ML PIGGYBACK IV ×2 (14:17→20:21)
[2024-05-01] MEDS: Ketorolac Tromethamine 15 MG/ML VIAL IVPUSH ×2 (16:47→21:45)
[2024-05-01] MEDS: ondansetron HCL 4 MG/2 ML VIAL IVPUSH (16:50)
[2024-05-01] MEDS: Docusate Sodium 100 MG CAPSULE PO (21:45)
[2024-05-02] MEDS: HYDROmorphone HCl 1 MG/ML SYRINGE IVPUSH (00:54)
[2024-05-02] MEDS: 0.9 % Sodium Chloride 1,000 ML 75 ML IVCONT (00:56)
[2024-05-02] MEDS: Acetaminophen 1,000 MG/100 ML PIGGYBACK 400 MG IV ×2 (02:24→08:16)
[2024-05-02] MEDS: ceFAZolin Sodium/Dextrose,Iso 2 GM/50 ML PIGGYBACK IV (02:42)
[2024-05-02 03:34] VITALS: BP 115/62; PULSE 78; RESP 20; TEMP 36.3; O2SAT 98
[2024-05-02] MEDS: Ketorolac Tromethamine 15 MG/ML VIAL IVPUSH ×2 (04:41→08:17)
[2024-05-02] MEDS: Omeprazole 20 MG CAPSULE.DR PO (06:29)
--- NOTE | 2024-05-02 06:49 | PM.DS ---
DS: Providers Provider Date of Service: 05/02/24 Date of admission: 05/01/24 06:04 Primary care physician: Dav Messina MD DS: Summary Time Attestation Discharge Coordination Time (in mins): 15 Quality: Safe Use of Opioids Does Pt have an Active Cancer Diagnosis on the Problem List?: No Quality: Stroke Does the patient have a stroke diagnosis?: No Physical Exam Vital Signs: Vital Signs: Last Vital Signs Temp 97.3 F 05/02/24 03:34 Pulse 78 05/02/24 03:34 Resp 20 05/02/24 03:34 BP 115/62 05/02/24 03:34 Pulse Ox 98 05/02/24 03:34 O2 Del Method Room Air 05/02/24 03:34 O2 Flow Rate 4 05/01/24 10:26 BMI result Body Mass Index 22.0 DS: Data Data Completed and Pending Labs on day of discharge: Laboratory Results - last 24 hr 05/01/24 06:27 Antibody Screen NEGATIVE Discharge Plan Discharge Anticipated Discharge Date/Time: 05/02/24 06:49 Patient Disposition: Home, Self-Care Discharge Diagnosis: s/p L3-4 OLIF Referrals: Dav Messina MD [Primary Care Provider] - 1 Week Discharge Medications: New hydromorphone 2 mg tablet 2 mg PO Q6H Qty: 30 0RF Rx Instructions: Partial Fill upon patient request. Continued amlodipine-benazepril 5-10 mg capsule 1 cap PO DAILY polyethylene glycol 3350 [Miralax] 17 gram/dose Powder 17 g PO DAILY omeprazole 20 mg capsule,delayed release(DR/EC) 20 mg PO DAILY@0630 Diet: Advance to usual diet Activity on Discharge: As tolerated Stand Alone Forms: Patient Portal Discharge page Print Language: New Zealander Care Plan Goals: Returned to normal activity as tolerated Health Concerns: None. Plan of Treatment: Follow-up in clinic in 2-3 weeks. Assessment: POD: 1 Procedure: L3-4 OLIF Patient reports she is up OOB to bathroom and is otherwise doing well. She feels her symptoms are much better than pre-operatively. She still reports mild-moderate axial low back pain near the incision site, and reports some tingling in her left thigh, with good relief with hydromorphone pain medication. She is voiding well, tolerating diet. Afebrile, vital signs stable. 4/5 strength dorsiflexion / plantar flexion. The rest of her lower extremity exam is 5/5. Back dressings have some staining without signs of hematoma. No active sanguineous drainage. Area is dry. Plan: 68 y/o female s/p L3-4 lumbar fusion. POD:1. Doing well, OOB, tolerating diet and voiding without sheldon. The patient was able to mobilize with PT x2 today. During her initial assessment she had some difficulties with ambulation which were largely pain limited. Thankfully PT was able to revisit later this morning after breakfast/medications and the patient did much better. They are recommending DC home. Omar Muller MD,PhD [facility]
--- NOTE | 2024-05-02 07:47 | HO.NEUROPN_ITS ---
Neurosurgery Operative Note Date of Service: 05/02/24 Narrative: POD: 1 Procedure: L3-4 OLIF Patient reports she is up OOB to bathroom and is otherwise doing well. She feels her symptoms are much better than pre-operatively. She still reports mild- moderate axial low back pain near the incision site, and reports some tingling in her left thigh, with good relief with hydromorphone pain medication. She is voiding well, tolerating diet. Afebrile, vital signs stable. 4/5 strength dorsiflexion / plantar flexion. The rest of her lower extremity exam is 5/5. Back dressings have some staining without signs of hematoma. No active sanguineous drainage. Area is dry. Plan: 68 y/o female s/p L3-4 lumbar fusion. POD:1. Doing well, OOB, tolerating diet and voiding without sheldon. Some concerns were raised by attending neurosurgeon Dr. Muller regarding her left anterior thigh tingling and strength issues which are most likely pain limited. We are tentatively planning for DC today assuming the patient is able to mobilize well with PT. Omar Muller MD,PhD [facility]
[2024-05-02 07:56] VITALS: BP 129/64; PULSE 78; RESP 18; TEMP 36.3; O2SAT 99
[2024-05-02] MEDS: polyethylene glycoL 3350 17 GM POWD.PACK PO (08:16)
[2024-05-02] MEDS: lisinopriL 10 MG TABLET PO (08:17)
[2024-05-02] MEDS: amLODIPine Besylate 5 MG TABLET PO (08:17)
[2024-05-02] MEDS: Docusate Sodium 100 MG CAPSULE PO (08:17)
--- NOTE | 2024-05-02 08:50 | MHC.CM.PN ---
Addendum entered by Justine Rainey RN 05/02/24 13:29: Patient medically cleared for dc. Addendum entered by Justine Rainey RN 05/02/24 11:07: PT rec outpatient services. CM will continue to follow. Addendum entered by Justine Rainey RN 05/02/24 08:53: Patient reports her daughter is picking up a walker from the [facility] for use at home. Original Note: Patient lives in a home w/ . Functionally independent. Denies use of DME or services. PCP Dav Messina MD @ [facility] Patient completed HCP naming HCA's: 1) Myriam Haile (cousin) and 2) Susan Ballesteros (daughter). DP: Pending PT recommendations. Patient's goal is home, self care, outpatient PT if recommended. Family to transport. CM will continue to follow.
[2024-05-02] MEDS: HYDROmorphone HCl 2 MG TABLET PO (13:27)
--- NOTE | 2024-05-03 09:13 | HO.POSTANES ---
Post Anesthesia Evaluation Post Anesthesia Evaluation Date of Service: 05/01/24 Anesthesia: General Mental Status: Awake Pain Control: Satisfactory Nausea/Vomiting: None Hydration: Adequate Anesthesia-Related Issues: No Anes. Related Issues
== END 2024-05-02 13:53 | disposition home or self-care (01) | DRG 460 ==
LOC: HO.SSSA 06:09 → HO.S3 10:27
PROVIDERS: Neurological Surgery; Admitting Provider Physician Assistant; PCP Family Medicine; Visit Provider Physician Assistant
PROC: 0SG00A0 Fusion of Lumbar Vertebral Joint with Interbody Fusion Device, Anterior Approach, Anterior Column, Open Approach (ICD-10-PCS; principal; 2024-05-01 07:30)
DX: M48.062 Spinal stenosis, lumbar region with neurogenic claudication (principal); M51.36 Other intervertebral disc degeneration, lumbar region; Z98.1 Arthrodesis status
CPT/HCPCS: 86850; 86900; 86901; 97116; 97162; 97530; C1713; C1889; C9290; J0131; J0665; J0690; J1100; J1170; J1885; J2371; J2405; J2704; J3010; L8699

== ENCOUNTER → 2024-05-01 06:04 | Outpatient (BNV) | payer OTHER, SELFPAY | PROVIDERS: Admitting Provider Physician Assistant; PCP Family Medicine; Visit Provider Neurological Surgery | DX: M51.36 Other intervertebral disc degeneration, lumbar region (principal) | CPT/HCPCS: 20930; 22558; 22612; 22840; 22853; 99024; 99499 ==

== ENCOUNTER 2024-05-22 14:09 | Outpatient (AMB) | payer OTHER, SELFPAY ==
--- NOTE | 2024-05-22 14:12 | A.SPINEOV_ITS ---
Intake Visit Reasons: 1st post op Intake Note: Mrs. Bruno is here today for her 1st post-op appointment. 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 To recap she was initially evaluated in the clinic for severe lower back pain when she stands for prolonged period of time, accompanied by cramping in her posterior thighs and lateral calves. She reports that the bulk of this is still continuing despite attempted medication interventions. She does feel as though the gabapentin has been helping her get some sleep at night. She has not been taking her narcotic pain medication. We discussed the postoperative healing course, and I believe she is likely dealing with some postoperative inflammation that will resolve in time. I answered all of her questions to the best of my ability. No new neurological deficits. Patient is able to ambulate well, rises from a seated position without difficulty. Incision sites are closed, well healing, with no signs of drainage. We will follow-up with the patient in 6 weeks for their 2nd postoperative visit. At that time we will get x-rays to review with the patient. Omar Muller MD,PhD [facility] Coding Level of Care Code Global (73406) Diagnoses Lumbar spinal stenosis due to adjacent segment disease after fusion procedure M48.061; M51.36
== END 2024-05-22 14:30 | disposition home or self-care (01) ==
PROVIDERS: PCP Family Medicine; Visit Provider Physician Assistant
DX: M48.061 Spinal stenosis, lumbar region without neurogenic claudication (principal); M51.360 Other intervertebral disc degeneration, lumbar region with discogenic back pain only
CPT/HCPCS: 99024

== ENCOUNTER → 2024-05-22 14:09 | Outpatient (BNVA) | payer OTHER, SELFPAY | PROVIDERS: PCP Family Medicine; Visit Provider Physician Assistant ==

== ENCOUNTER 2024-07-03 12:48 | Outpatient (REF) | payer OTHER, SELFPAY ==
--- NOTE | ~2024-07-03 | XR_ITS ---
EXAMINATION: XR LUMBAR SPINE CLINICAL INFORMATION: Stenosis, lumbar region without neurogenic claudication M48.061. COMPARISON: XR Lumbar spine 01/13/2024 TECHNIQUE: 4 views of lumbar spine. FINDINGS: Interval removal of the posterior lumbosacral fusion hardware followed by L3-L4 TLIF. Stable alignment and mild altered level degenerative disc disease. No abnormal motion on the lateral flexion and extension views XR/XR lumbar spine 4V min IMPRESSION: Interval removal of the posterior lumbosacral fusion hardware followed by L3-L4 TLIF. Stable alignment and mild degenerative disc disease. Electronically signed by: Juan Carlos Pierre MD 08/28/2024 01:02 PM JOHN
== END 2024-07-03 12:49 | disposition home or self-care (01) ==
LOC: HO.HOSX 12:48
PROVIDERS: Visit Provider Physician Assistant
DX: M48.061 Spinal stenosis, lumbar region without neurogenic claudication (principal); M51.369 Other intervertebral disc degeneration, lumbar region without mention of lumbar back pain or lower extremity pain; Z98.890 Other specified postprocedural states
CPT/HCPCS: 72110; 99212

== ENCOUNTER 2024-07-03 13:17 | Outpatient (AMB) | payer MEDICARE, SELFPAY ==
--- NOTE | 2024-07-03 13:31 | A.SPINEOV_ITS ---
Intake Visit Reasons: 2nd post op with Xrays Intake Note: Mrs. Bruno is here today for her 2nd post op with x-rays. 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 Required: No Allergies citalopram Allergy (Intermediate, Verified 05/22/24 14:17) syncope/cramping codeine Allergy (Intermediate, Verified 05/22/24 14:17) Hives/rash Assessment & Plan Assessment & Plan (1) Lumbar spinal stenosis due to adjacent segment disease after fusion procedure: Code(s): M48.061 - Spinal stenosis, lumbar region without neurogenic claudication; M51.36 - Other intervertebral disc degeneration, lumbar region Category: Medical Plan Procedure: L3-4 OLIF with removal L5-S1 instrumentation followed by L3-4 posterior instrumented fusion Mima comes in today for her 2nd postoperative visit. To recap she was previously seen in the office for severe low back pain with cramps in the back of her leg and to the outside of her lower leg. This cramping in her legs persisted throughout her 1st postoperative visit. We discussed previously how it was likely related to inflammation. Thankfully today that pain has subsided and the patient states that she is ?much better than before surgery. No new neurological deficits. Patient is able to ambulate well, rises from a seated position without difficulty. Incision sites are closed, well healing, with no signs of drainage. We will follow-up with the patient in 1 year from her date of surgery for CT scan and subsequent follow up to evaluate for fusion progress. Omar Muller MD,PhD [facility] Orders: Orders XR lumbar spine 4V min Today M48.061 - Spinal stenosis, lumbar region without neurogenic claudication, M51.36 - Other intervertebral disc degeneration, lumbar region CT lumbar spine wo IV con Today M48.061 - Spinal stenosis, lumbar region without neurogenic claudication, M51.36 - Other intervertebral disc degeneration, lumbar region Coding Level of Care Code Global (12712) Diagnoses Lumbar spinal stenosis due to adjacent segment disease after fusion procedure M48.061; M51.36
== END 2024-07-03 13:48 | disposition home or self-care (01) ==
PROVIDERS: PCP Family Medicine; Visit Provider Physician Assistant
DX: M48.061 Spinal stenosis, lumbar region without neurogenic claudication (principal); M51.369 Other intervertebral disc degeneration, lumbar region without mention of lumbar back pain or lower extremity pain
CPT/HCPCS: 99024